=== PATIENT | female | born 1945 | race African-American/Black ===

== ENCOUNTER 2019-09-09 11:49 | Emergency (ER) | payer SELFPAY ==
[~2019-09-09] VITALS: Ht 162.6 cm; Wt 94.0 kg
[2019-09-09] MEDS ORDERED: IBUPROFEN 600MG TABLET PO ONE (14:00)
[2019-09-09 14:06] VITALS: BP 138/78
== END 2019-09-09 14:07 | disposition home or self-care (01) ==
LOC: ER 11:49
DX: B34.9 Viral infection, unspecified (principal); I10 Essential (primary) hypertension; E78.00 Pure hypercholesterolemia, unspecified
CPT/HCPCS: 99281

== ENCOUNTER 2020-05-01 11:01 | Emergency (ER) | payer OTHER ==
[~2020-05-01] VITALS: Ht 162.6 cm; Wt 99.0 kg
[2020-05-01] MEDS ORDERED: ACETAMINOPHEN 325MG TABLET PO ONE (13:15)
[2020-05-01 13:35] VITALS: BP 131/78
== END 2020-05-01 13:37 | disposition home or self-care (01) ==
LOC: ER 11:01
DX: L08.89 Other specified local infections of the skin and subcutaneous tissue (principal); I10 Essential (primary) hypertension; E78.00 Pure hypercholesterolemia, unspecified
CPT/HCPCS: 99283